=== PATIENT | male | born 1970 | race Caucasian/White ===

== ENCOUNTER → 2024-01-14 13:38 | Outpatient (REF) | payer OTHER, SELFPAY | LOC: RCS 13:38 | PROVIDERS: ATTENDING PHYSICIAN Internal Medicine Cardiovascular Disease; FAMILY PHYSICIAN Nurse Practitioner Family | DX: R07.89 Other chest pain (principal); I25.2 Old myocardial infarction | CPT/HCPCS: 93306 ==

== ENCOUNTER → 2024-01-22 10:45 | Outpatient (REF) | payer OTHER, SELFPAY | LOC: DHCBC/DCA 10:45 | PROVIDERS: ATTENDING PHYSICIAN Internal Medicine Cardiovascular Disease; FAMILY PHYSICIAN Nurse Practitioner Family | DX: R07.89 Other chest pain (principal); I25.2 Old myocardial infarction; Z95.5 Presence of coronary angioplasty implant and graft; E78.5 Hyperlipidemia, unspecified; E66.09 Other obesity due to excess calories | CPT/HCPCS: 78452; 93017; A9500 ==

== ENCOUNTER → 2024-05-20 12:55 | Outpatient (REF) | payer OTHER, SELFPAY | LOC: HWRAD 12:55 | PROVIDERS: ATTENDING PHYSICIAN Nurse Practitioner Family | DX: J06.9 Acute upper respiratory infection, unspecified (principal) | CPT/HCPCS: 71046 ==